=== PATIENT | male | born 1970 ===

== ENCOUNTER 2024-06-28 19:23 | Inpatient (IN) | payer OTHER ==
[~2024-06-28] VITALS: Ht 167.6 cm; Wt 86.2 kg
[~2024-06-28 19:23] MED LIST: BIKTARVY 30-121 EACH PO; JANUMET XR 1001 EACH PO; OXYC1TAB9 PO
--- NOTE | 2024-06-28 19:59 | NUR ---
PTE ALERTA Y ORIENTADO X 3 ESFERAS RECIBIDO EN AMBULANCIA DE TRASLADO DE INSTITUCION DE BATTLE GROUND,PTE REFIERE DOLOR EN CUADRANTE INFERIOR LT DESDE EL SABADO CON VOMITOS.CANALIZADO EN MANO RT CON R/L #22 PATENTE Y SERGIO DE EDEMA.SE DAREK S/V Y SE PRESENTA A DR PEÑA.
[2024-06-28] MEDS ORDERED: ACETAMINOPHEN 500 MG GEL..CAP PO ONE ×2 (20:45→20:56)
[2024-06-28] MEDS ORDERED: 0.9 % SODIUM CHLORIDE 500 ML IV ONE (20:45)
[2024-06-28] MEDS ORDERED: ONDANSETRON HCL 2 MG/ML VIAL IV ONE (20:45)
[2024-06-28] MEDS ORDERED: FAMOTIDINE/PF 20 MG/2 ML VIAL IV ONE (20:45)
[2024-06-28] MEDS ORDERED: ONDANSETRON HCL 2 MG/ML VIAL ONE (20:55)
[2024-06-28] MEDS ORDERED: FAMOTIDINE/PF 20 MG/2 ML VIAL ONE (20:56)
[2024-06-28] MEDS ORDERED: MORPHINE SULFATE 4 MG/ML CARTRIDGE IV ONE (21:00)
--- NOTE | 2024-06-28 21:19 | NUR ---
RN SCHMITZ ORIENTA A PTE SOBRE TRATAMIENTO E INSTRUCCIONES A SEGUIR, EL REFIERE ENTENDER. SE COLECTA MUESTRAS, SE CANALIZA Y SE ADMINISTRA MEDICAMENTO MADELYN ORDEN MEDICA
[2024-06-28 21:42] LABS: URINE APPEARANCE Clear; URINE BILIRRUBIN Negative (NEGATIVE); URINE BLOOD Negative; URINE COLOR Yellow; URINE GLUCOSE Negative (NEGATIVE); URINE KETONE 15 (NEGATIVE); URINE LEUKOCYTE Negative; URINE NITRATE Negative; URINE PROTEIN 30 (NEGATIVE)
[2024-06-28 21:45] LABS: HEMATOCRIT 38.5 % (39.0-48.0); MEAN CELL VOLUME 85.1 fL (80.0-100.00); MEAN CORPUSCULAR HEMOGLOBIN 28.8 pg (27.00-32.0); MEAN CORPUSCULAR HGB CONC 33.8 g/dl (32.0-36.0); RED BLOOD COUNT 4.53 M/uL (4.00-6.00); RED CELL DISTRIBUTION WIDTH 17.2 % (11.5-14.5); URINE EPITHELIAL CELLS 1.8 uL (0.0-38.8); URINE RBC 10.8 uL (0.0-20.8)
[2024-06-28 21:53] LABS: URINE BACTERIA 1.2 uL (0.0-1933); URINE CAST 0.15 uL (0.0-1.40); URINE WBC 1.2 uL (0.0-23.2)
[2024-06-28 21:54] LABS: PLATELET COUNT 125 K/uL (150-450)
[2024-06-28 22:09] LABS: ALBUMIN 3.4 gm/dL (3.4-5.0); BILIRUBIN TOTAL 1.62 mg/dL (0.3-1.2); CALCIUM 8.7 mg/dL (8.5-10.1); CREATININE SERUM 1.01 mg/dL (0.70-1.30); GFR 76.69; GLOBULINA 4.3 G/DL (2.4-3.5); POTASSIUM 3.43 mEq/L (3.5-5.1); TOTAL PROTEIN 7.7 gm/dL (6.4-8.2)
[2024-06-28] MEDS ORDERED: METRONIDAZOLE/SODIUM CHLORIDE 500 MG/100 ML PIGGYBACK IV ONE ×2 (22:29→22:30)
[2024-06-28] MEDS ORDERED: CIPROFLOXACIN IN 5 % DEXTROSE 400 MG/200 ML PIGGYBAG IV ONE ×2 (22:29→22:30)
[2024-06-28] MEDS ORDERED: ONDANSETRON HCL 4 MG in 0.9 % SODIUM CHLORIDE 50 ML IV PRN (23:15)
[2024-06-28] MEDS ORDERED: ACETAMINOPHEN 500 MG GEL..CAP PO PRN (23:15)
[2024-06-28] MEDS ORDERED: 0.9 % SODIUM CHLORIDE 1,000 ML IV SCH (23:15)
[2024-06-28] MEDS ORDERED: MEPERIDINE HCL/PF 25 MG/ML VIAL IM PRN (23:30)
[2024-06-28] MEDS ORDERED: INSULIN LISPRO 1,000 UNIT/10 ML UNITS SUBCUTANEO PRN (23:30)
[2024-06-28] MEDS ORDERED: DEXTROSE 50 % IN WATER 0.5 G/ML DISP.SYRIN IV PRN (23:30)
[2024-06-28] MEDS ORDERED: MEPERIDINE HCL/PF 25 MG/ML VIAL IM ONE (23:30)
[2024-06-28] MEDS ORDERED: PROMETHAZINE HCL 25 MG/ML AMPUL IM ONE (23:45)
[2024-06-28] MEDS ORDERED: PROMETHAZINE HCL 25 MG/ML AMPUL ONE (23:59)
[2024-06-29] MEDS ORDERED: METRONIDAZOLE/SODIUM CHLORIDE 100 ML IV SCH (01:00)
[2024-06-29 02:24] LABS: INR 1.14; PARTIAL THROMBOPLASTIN TIME 35.1 SECONDS (22.0-34.0); PROTHROMBIN TIME 11.9 SECONDS (9.0-11.5)
[2024-06-29] MEDS ORDERED: DIATRIZOATE MEGLUMINE, SODIUM 30 ML BOTTLE PO ONE (08:45)
[2024-06-29] MEDS ORDERED: METRONIDAZOLE/SODIUM CHLORIDE 500 MG/100 ML PIGGYBACK IV ONE (08:56)
[2024-06-29] MEDS ORDERED: DIATRIZOATE MEGLUMINE, SODIUM 30 ML BOTTLE ONE (08:58)
[2024-06-29] MEDS ORDERED: CIPROFLOXACIN IN 5 % DEXTROSE 200 ML IV SCH (09:00)
[2024-06-29] MEDS ORDERED: PANTOPRAZOLE SODIUM 40 MG/VIAL VIAL IV SCH (09:00)
[2024-06-30 06:16] LABS: HEMOGLOBIN 10.9 g/dL (13-16.00); MEAN CELL VOLUME 84.1 fL (80.0-100.00); MEAN CORPUSCULAR HEMOGLOBIN 28.7 pg (27.00-32.0); MEAN CORPUSCULAR HGB CONC 34.1 g/dl (32.0-36.0); RED CELL DISTRIBUTION WIDTH 17.5 % (11.5-14.5)
[2024-06-30 06:56] LABS: ALBUMIN 2.4 gm/dL (3.4-5.0); BILIRUBIN TOTAL 0.63 mg/dL (0.3-1.2); CALCIUM 6.6 mg/dL (8.5-10.1); CREATININE SERUM 0.49 mg/dL (0.70-1.30); GFR 176.71; GLOBULINA 2.5 G/DL (2.4-3.5); MAGNESIUM 1.5 mg/dL (1.8-2.4); PHOSPHOROUS 2.3 mg/dL (2.5-4.9); TOTAL PROTEIN 4.9 gm/dL (6.4-8.2)
[2024-06-30 07:16] LABS: PLATELET COUNT 117 K/uL (150-450)
[2024-06-30 07:54] LABS: C-REACTIVE PROTEIN 11.1 MG/DL (0.00-0.29)
[2024-06-30 07:55] LABS: POTASSIUM 2.99 mEq/L (3.5-5.1)
[2024-06-30] MEDS ORDERED: POTASSIUM CHLORIDE IN WATER 40 MEQ/100 ML PIGGYBAG IV NR (11:00)
[2024-07-01 07:48] LABS: HEMATOCRIT 35.9 % (39.0-48.0); HEMOGLOBIN 12.3 g/dL (13-16.00); MEAN CELL VOLUME 85.3 fL (80.0-100.00); MEAN CORPUSCULAR HEMOGLOBIN 29.1 pg (27.00-32.0); MEAN CORPUSCULAR HGB CONC 34.1 g/dl (32.0-36.0); PLATELET COUNT 140 K/uL (150-450); RED BLOOD COUNT 4.21 M/uL (4.00-6.00); RED CELL DISTRIBUTION WIDTH 17.8 % (11.5-14.5)
[2024-07-01 07:59] LABS: ALBUMIN 3.1 gm/dL (3.4-5.0); BILIRUBIN TOTAL 0.6 mg/dL (0.3-1.2); CALCIUM 8.4 mg/dL (8.5-10.1); CREATININE SERUM 0.64 mg/dL (0.70-1.30); GFR 129.84; GLOBULINA 3.3 G/DL (2.4-3.5); POTASSIUM 3.56 mEq/L (3.5-5.1); TOTAL PROTEIN 6.4 gm/dL (6.4-8.2)
== END 2024-07-01 12:32 | disposition home or self-care (01) | DRG 977 ==
LOC: ER 19:23 → SEC-K 23:18 → MEDI 06-29 13:06
PROVIDERS: General Practice; Internal Medicine Infectious Disease; Nurse Practitioner Family; ADMIT Internal Medicine; ATTEND Internal Medicine
PROC: BW21YZZ Computerized Tomography (CT Scan) of Abdomen and Pelvis using Other Contrast (ICD-10-PCS; principal; 2024-06-29)
DX: K52.9 Noninfective gastroenteritis and colitis, unspecified (principal); B20 Human immunodeficiency virus [HIV] disease; E87.6 Hypokalemia; E78.5 Hyperlipidemia, unspecified; E11.65 Type 2 diabetes mellitus with hyperglycemia; Z79.4 Long term (current) use of insulin

== ENCOUNTER 2025-04-12 09:46 | Day surgery (SDC) | payer OTHER ==
[2025-04-12] MEDS ORDERED: MIDAZOLAM HCL 2 MG/2 ML VIAL IV ONE (13:15)
[2025-04-12] MEDS ORDERED: fentaNYL CITRATE 50 MCG/ML AMPUL IV ONE (13:15)
[2025-04-12] MEDS ORDERED: DIPHENHYDRAMINE HCL 50 MG/ML VIAL 1ML IV ONE (13:15)
[2025-04-12] MEDS ORDERED: VANCOMYCIN HCL125 MG PO (13:38)
[2025-04-12] MEDS ORDERED: NEXIUM 24HR20 M1 PO (13:38)
== END 2025-04-12 14:45 | disposition home or self-care (01) ==
LOC: AMB-ENDOS 09:46
PROVIDERS: ATTEND Surgery
DX: D01.3 Carcinoma in situ of anus and anal canal (principal); K52.89 Other specified noninfective gastroenteritis and colitis; A08.8 Other specified intestinal infections; K62.5 Hemorrhage of anus and rectum; K62.89 Other specified diseases of anus and rectum; K30 Functional dyspepsia; K21.9 Gastro-esophageal reflux disease without esophagitis; K29.00 Acute gastritis without bleeding

== ENCOUNTER 2025-04-12 15:34 | Outpatient (CLI) | payer OTHER ==
[~2025-04-12 15:34] MED LIST changes: +NEXIUM 24HR20 M1 PO; +VANCOMYCIN HCL125 MG PO
== END 2025-04-12 15:38 | disposition home or self-care (01) ==
LOC: SONOGRAMA 15:34
DX: N40.1 Benign prostatic hyperplasia with lower urinary tract symptoms (principal)